=== PATIENT | male | born 2000 | race Two or more races ===

== ENCOUNTER 2024-10-02 14:10 | Emergency (ER) | payer OTHER, SELFPAY ==
[2024-10-02 14:10] VITALS: BMI 24.3
--- NOTE | 2024-10-02 14:20 | XR_ITS ---
Examination: Abdomen AP single view Technique: AP portable supine abdomen, single view Exam date and time: October 02, 2024 1426 hours INDICATIONS: Abdominal pain beginning 2 days ago. FINDINGS: Moderate air and stool throughout the colon especially rectosigmoid region No obstruction No free air Intact osseous structures IMPRESSION: Moderate air and stool throughout the colon
--- NOTE | 2024-10-02 14:20 | XR_ITS ---
Examination: Ribs, right, with PA chest, 5 views Technique: Chest PA, RIBS AP, RPO, LPO, AP coned lower ribs 5 views Exam date and time: October 02, 2024 1426 hours INDICATIONS: Right rib pain beginning 2 years ago Findings: Normal heart size Lungs are clear Adequate bone density Right and left ribs appear intact IMPRESSION: No active disease
[2024-10-02 14:21] VITALS: BP 121/81; PULSE 111; RESP 18; TEMP 36.8; O2SAT 97
--- NOTE | 2024-10-02 14:34 | EDNOTE_ITS ---
ED Abdominal Pain RME/HPI General Chief Complaint: Abdominal Pain Stated complaint: RIGHT ABD PAIN FOR 2 DAYS Time seen by provider: 10/02/24 14:11 Arrival date/time: 10/02/24 14:10 RME / HPI RME / HPI narrative: This section includes all my notes and documentations, including HPI, PE, and ED course. To Ott MD HPI: 24-year-old male here with several hour history of pain in the right flank area. Has trouble localizing further. Has trouble describing the quality and quantity of the pain. Uncertain about exacerbating factors or relieving factors. No nausea or vomiting. No fever or chills. No urinary symptoms. No history of abdominal surgery. No other complaints. ROS: All negative except as documented in HPI. Physical Exam: General: Alert and oriented. No acute distress. Eyes: Conjunctivae and lids clear. Lungs: No respiratory distress. Abdomen: Soft and nontender. Normal bowel sounds. No distension. No rebound or guarding. Back: No CVA tenderness. Skin: Warm and dry. Neuro: Alert and oriented X 3. I reviewed all diagnostic test results. My interpretation of the right rib x-rays is no acute findings. My interpretation of the KUB is constipation. UA unremarkable. UDS positive for methamphetamine. When I looked for the patient to discuss diagnostic test results and treatment, I was told he eloped. To Ott MD Related Data Allergies Allergy/AdvReac Type Severity Reaction Status Date / Time No Known Allergies Allergy Verified 10/02/24 14:11 Course Quality Measures none Orders Category Date Time Status KUB [XR abdomen 1V] Stat Exams 10/02/24 14:20 Completed XR ribs RT min 3V w CXR1V Stat Exams 10/02/24 14:20 Completed Drug Screen,Urine Stat Lab 10/02/24 14:25 Completed UA [Urinalysis] Stat Lab 10/02/24 14:25 Completed Vital Signs Vital signs: Vital Signs Temperature 98.2 F 10/02/24 14:21 Pulse Rate 111 H 10/02/24 14:21 Respiratory Rate 18 10/02/24 14:21 Blood Pressure 121/81 10/02/24 14:21 Pulse Oximetry (%) 97 10/02/24 14:21 Oxygen Delivery Method Room Air 10/02/24 14:21 Abdominal Pain MDM Patient data External records reviewed:: [facility] previous records Clinical information provided by:: patient Social determinants that could affect healthcare access:: substance use Patient has the following chronic illnesses:: Substance abuse How is presenting disease/condition affected by chronic disease/condition?: uneffected by Evaluation data The following diagnostics were reviewed and interpreted by me:: lab results and radiology exam(s) Lab and/or radiology exams considered but not ordered:: None Interpretation Summary: Constipation Medications / Prescriptions Medications or Prescriptions considered but not ordered:: None Medication administrations:: None Consultations Consultation(s) initiated? (list below): No Diagnosis Differential diagnosis abdominal pain: abdominal pain, acute appendicitis, calculus of kidney, constipation, diverticulitis, gastroenteritis, pancreatitis and small bowel obstruction Most likely diagnosis given after review of the tests above:: Constipation Admission Indicated Admission indicated?: not indicated Explain why admission is indicated or not indicated:: Patient eloped Admission Request Was there a request for admission?: No Disposition Plan Disposition Plan: other (specify) (Patient eloped) Discharge Plan Plan Patient Disposition: Elopement Problem List Clinical Impression: Abdominal pain Patient/Caregiver Discharge Instructions Print Language: Wallisian
[2024-10-02 15:06] LABS: Collection Type, Urine Clean Catch
[2024-10-02 15:12] LABS: Amphetamine/Methamp Scrn,U Positive (Negative); Barbiturate Screen,Urine Negative (Negative); Benzodiazepines Screen,Urine Negative (Negative); Benzoylecgonine Screen, Ur Negative (Negative); Fentanyl Screen,Urine Negative (Negative); Opiate Screen,Urine Negative (Negative); THC Screen,Urine Negative (Negative)
[2024-10-02 16:00] LABS: Bilirubin,Urine Negative (Negative); Blood,Urine Negative (Negative); Clarity,Urine Clear (Clear/Hazy); Color,Urine Yellow (Lt Yel-Yel); Glucose, Urine Negative (Negative); Hyaline Casts,Urine < 1 /hpf (0-1); Ketones,Urine Negative (Negative); Leukocyte Esterase,Urine Negative (Negative); Nitrite,Urine Negative (Negative); Protein,Urine 1+ (Neg - Trace); RBC,Urine 7 /hpf (0-3); Specific Gravity,Urine 1.036 (1.001-1.035); Squamous Epithelial Cell,Urine < 1 /hpf (0-5); Urobilinogen,Urine Negative mg/dL (0.0-1.0); WBC,Urine 2 /hpf (0-5)
[2024-10-02 16:30] LABS: Sperm,Urine Present
--- NOTE | 2024-10-02 16:55 | PC.NURSE ---
CALLED FROM LOBBY AND NO ANSWER
--- NOTE | 2024-10-02 17:08 | PC.NURSE ---
called from lobby and no answer
--- NOTE | 2024-10-02 17:12 | PC.NURSE ---
CALLED FROM LOBBY AND NO ANSWER. PT NOT FOUND IN THE E.D. OUR OUTSIDE THE E.D
== END 2024-10-02 17:09 | disposition left against medical advice (07) ==
LOC: SERX 17:19
PROVIDERS: Emergency Provider Emergency Medicine
DX: R10.9 Unspecified abdominal pain (principal)
CPT/HCPCS: 71101; 74018; 80307; 81001; 99281

== ENCOUNTER 2024-11-20 07:40 | Emergency (ER) | payer OTHER, SELFPAY ==
[2024-11-20 07:42] VITALS: BMI 23.6
[2024-11-20 07:49] VITALS: BP 100/64; PULSE 71; RESP 16; TEMP 36.4; O2SAT 96
--- NOTE | 2024-11-20 08:00 | EKG_ITS ---
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
--- NOTE | 2024-11-20 08:08 | XR_ITS ---
Examination: PA lateral chest 2 views TECHNIQUE: Upright PA lateral chest 2 views Exam date and time: November 20, 2024 0806 hours Comparison October 02, 2024 INDICATIONS: Chest pain beginning 2 weeks ago. FINDINGS: Normal heart size Lungs are clear. The osseous structures are intact IMPRESSION: No active disease
[2024-11-20 08:39] LABS: Basophils # (Auto) 0.1 Thou/mm3 (0.0-0.2); Basophils % (Auto) 1 % (0-2.5); Eosinophils # (Auto) 0.3 Thou/mm3 (0.0-0.5); Eosinophils % (Auto) 4 % (0-10); Hematocrit 46.4 % (41.0-53.0); Hemoglobin 15.7 g/dL (13.5-16.0); Immature Granulocytes % (Auto) 0 % (0-0); Immature Granulocytes Auto 0.02 Thou/mm3 (0.00-0.00); Lymphocytes # (Auto) 3.3 Thou/mm3 (1.0-4.8); Lymphocytes % (Auto) 45 % (10-50); Mean Corpuscular HGB Conc 33.8 g/dl (31.0-37.0); Mean Corpuscular Volume 86 fL (80-100); Monocytes # (Auto) 0.5 Thou/mm3 (0.0-0.8); Monocytes % (Auto) 7 % (0-12); Neutrophils # (Auto) 3.3 Thou/mm3 (1.8-7.7); Neutrophils % (Auto) 44 % (37-80); Nucleated Red Blood Cell % 0 /100 WBC (0); Platelet Count 348 Thou/mm3 (140-440); RDW Standard Deviation 42.2 fL (35.1-43.9); Red Blood Count 5.41 Miln/mm3 (4.50-5.90); White Blood Count 7.4 Thou/mm3 (3.8-10.6)
[2024-11-20 08:57] LABS: Alanine Aminotransferase 17 U/L (10-49); Albumin, Serum 5.3 gm/dL (3.5-5.0); Albumin/Globulin Ratio 2.1 (1.2-2.2); Alkaline Phosphatase 101 U/L (46-116); Anion Gap 6 (7-16); Aspartate Amino Transferase 18 U/L (0-34); BUN/Creatinine Ratio 19 Ratio (12-20); Bilirubin,Total 0.6 mg/dL (0.3-1.2); Blood Urea Nitrogen 15 mg/dL (9-23); Carbon Dioxide 30.7 mMol/L (20.0-31.0); Chloride 100 mMol/L (98-107); Creatinine (Component) 0.8 mg/dL (0.6-1.3); Estimated Creatinine Clearance 141.2 mL/min (>60); Globulin 2.5 gm/dL (2.3-3.5); Glucose 84 mg/dL (74-106); Osmolality,Calculated 273 (275-295); Potassium 4.2 mMol/L (3.4-5.1); Sodium 137 mMol/L (136-145); Total Protein 7.8 gm/dL (5.7-8.2); Troponin I < 0.002 ng/mL (0.0-0.045); eGFR > 60 See Note
--- NOTE | 2024-11-20 13:16 | PC.NURSE ---
[id number]
--- NOTE | 2024-11-20 13:34 | PD.EDRME ---
Rapid Medical Screening Exam RME Arrival date/time: 11/20/24 07:40 24-year-old male with history of methamphetamine abuse and homelessness presents emergency department complains of chest pain ongoing for last couple of weeks Chief Complaint: Chest Pain Time Seen by Provider: 11/20/24 09:58 Vital signs: Vital Signs Temperature 97.6 F 11/20/24 07:49 Pulse Rate 71 11/20/24 07:49 Respiratory Rate 16 11/20/24 07:49 Blood Pressure 100/64 11/20/24 07:49 Pulse Oximetry (%) 96 11/20/24 07:49 Oxygen Delivery Method Room Air 11/20/24 07:49
--- NOTE | 2024-11-20 13:45 | PC.NURSE ---
no answer in lobby when called for review
--- NOTE | 2024-11-20 14:07 | PC.NURSE ---
no answer in lobby when called for review
== END 2024-11-20 14:14 | disposition left against medical advice (07) ==
PROVIDERS: Nurse Practitioner Primary Care; Emergency Provider Emergency Medicine
DX: R07.9 Chest pain, unspecified (principal); R94.31 Abnormal electrocardiogram [ECG] [EKG]; Z59.00 Homelessness unspecified; Z53.29 Procedure and treatment not carried out because of patient's decision for other reasons
CPT/HCPCS: 36415; 71046; 80053; 80307; 84484; 85025; 93005; 99281